=== PATIENT | female | born 1940 | race Caucasian/White ===

== ENCOUNTER 2016-08-19 09:53 | Outpatient (CLI) | payer OTHER ==
[~2016-08-19 09:53] MED LIST: ATORVASTATIN CA20 MG PO; CITALOPRAM HYDR20 MG PO; FOSAMAX70 MG PO; LEVOTHYROXINE50 MCG PO; [UNRECOGNIZED DRUG - MIXTURE] PO
--- NOTE | 2016-08-19 11:21 | DIAGNOSTIC IMAGING REPORT ---
PROCEDURE: MG BILATERAL SCREENING W/CAD INDICATION: Niece with a history of breast cancer. TECHNIQUE: Bilateral CC and MLO digital views. COMPARISON: Mammograms 08/13/2015, 06/18/2013 and 06/14/2012. FINDINGS: Computer-aided detection applied. Moderately dense. No change. IMPRESSION: 1. Negative mammogram RESULT CODE: 1- Negative. A. A negative report should not delay biopsy if a dominant or clinically suspicious mass is present. 10-15% of cancers are not identified by x-ray. B. A negative report may reinforce clinical impression. C. Adenosis and dense breasts may obscure an underlying neoplasm. D. False positive reports average 6-10%. E.. A yearly screening mammogram is recommended. A reminder letter will be scheduled.
== END 2016-08-19 23:00 | disposition home or self-care (01) ==
LOC: MAM SRH 09:53
DX: Z12.31 Encounter for screening mammogram for malignant neoplasm of breast (principal)

== ENCOUNTER 2017-01-01 11:27 | Outpatient (CLI) | payer OTHER ==
--- NOTE | 2017-01-01 13:38 | DIAGNOSTIC IMAGING REPORT ---
PROCEDURE: MR LUMBAR SPINE W/O CONTRAST INDICATION: LUMBAR BACK PAIN TECHNIQUE: Noncontrast T1, T2, and STIR sagittal images. T1 and T2 axial images. COMPARISON: Number spine MRI 09/11/2006. FINDINGS: Mild L2-3, L3-4 and moderate L4-5 disc space narrowing with grade 1 L4-5 anterolisthesis, new since the prior MRI. L4-5 endplate reactive bone marrow edema. Mild spur formation. Schmorl's nodes from L2 to L5. No fracture or suspicious osseous lesion. L1, S1, S2 bony hemangiomas. Normal conus. Paraspinal soft tissues are normal. L1-2: Minor disc bulge. No spinal or foraminal stenosis. L2-3: Small disc bulge and facet arthropathy. No foraminal or spinal stenosis. L3-4: Mild broad-based disc bulge and facet arthropathy but no foraminal or spinal stenosis. L4-5: Mild right foraminal disc protrusion superimposed on a mildly broad-based disc bulge with mild facet arthropathy. There is no significant foraminal narrowing. No spinal stenosis. L5-S1: Minor disc bulge and facet arthropathy. No foraminal or spinal stenosis. IMPRESSION: 1. Mild to moderate degenerative changes with multilevel disc bulging 2. L4-5 grade 1 anterolisthesis with right foraminal disc protrusion but no significant foraminal stenosis
== END 2017-01-01 23:00 | disposition home or self-care (01) ==
LOC: MRI SRH 11:27
DX: M51.26 Other intervertebral disc displacement, lumbar region (principal)